=== PATIENT | female | born 1970 | race African-American/Black ===

== ENCOUNTER → 2019-08-04 | Outpatient (CLI) | payer OTHER ==
[2014-07-20 17:58] VITALS: BP 165/89
--- NOTE | 2019-08-04 09:33 | KCIC ---
CT abdomen pelvis without contrast dated 08/04/2019. No comparison available. CLINICAL INDICATION: Bilateral hydronephrosis and microscopic hematuria. TECHNIQUE: Contiguous axial imaging of the abdomen and pelvis performed without the administration of IV or oral contrast. One or more of the following individualized dose reduction techniques were utilized for this examination: 1. Automated exposure control 2. Adjustment of the mA and/or kV according to patient size 3. Use of iterative reconstruction technique. FINDINGS: Limited images of lung bases are clear. Heart size within normal limits. No pleural or pericardial effusion. Solid abdominal viscera not well evaluated in the absence of contrast material. Indeterminate low-density lesion at the hepatic dome on image 23 measures 2.3 cm in size. There is also a low-density focus at the inferior right lobe on image 79 that measures 6 mm in size, likely cyst. No biliary ductal dilatation. The gallbladder is unremarkable. Spleen, pancreas, adrenal glands unremarkable. Kidneys are symmetric in size and attenuation. No calcific renal or ureteral stone. No hydronephrosis. Unopacified GI tract normal in caliber and contour. No focal bowel wall thickening. No inflammatory stranding in the mesentery. Appendix normal in caliber. No ascites or lymphadenopathy. Abdominal aorta normal in caliber. Images the pelvis show nondistended urinary bladder. There is diffuse bladder wall thickening. No calcific bladder stone. Uterus is not well visualized and may be surgically absent. No free fluid. There is borderline enlarged left inguinal lymph node measuring 10 mm short axis. No iliac chain adenopathy. Bone windows show no acute findings. Mild multilevel spondylosis. IMPRESSION: 1. No acute abnormality of abdomen or pelvis. No renal stone or hydronephrosis. 2. Mild diffuse wall thickening of the urinary bladder, nonspecific. Consider acute or chronic cystitis. 3. Indeterminate low-density lesion at the hepatic dome. Could be further evaluated with biphasic CT or liver MRI. There is also a probable small cyst at the inferior right lobe liver. 4. Status post hysterectomy. Electronically signed by: Paco Gonzalez MD (08/04/2019 9:31 AM) [id number]
== END | disposition home or self-care (01) ==
LOC: KCIC CT 08:35
PROVIDERS: ATTEND Internal Medicine
DX: N13.30 Unspecified hydronephrosis (principal); Z90.710 Acquired absence of both cervix and uterus
CPT/HCPCS: 74176